=== PATIENT | male | born 2000 | race Caucasian/White ===

== ENCOUNTER 2021-07-09 08:12 | Outpatient (CLI) | payer OTHER ==
[~2021-07-09] VITALS: Ht 188 cm; Wt 119.1 kg
[2021-07-09 08:45] VITALS: BP 129/100; PULSE 80; TEMP 97.9
[2021-07-09 08:46] LABS: HEMATOCRIT 49.5 % (42.0-52.0); HEMOGLOBIN 17.3 g/dl (13.5-18.0); MEAN CELL VOLUME 88 fl (80.0-100.0); MEAN CORPUSCULAR HEMOGLOBIN 31 pg (27.0-31.0); MEAN CORPUSCULAR HGB CONC 35 g/dl (33.0-37.0); MEAN PLATELET VOLUME 9.5 fl (7.4-10.4); PLATELET COUNT 295 K/mm3 (130-400); RED BLOOD COUNT 5.64 M/mm3 (4.20-5.60); REDCELL DISTRIBUTION WIDTH-CV 11.9 % (11.5-14.5)
[2021-07-09 08:58] LABS: CALCIUM 9.4 mg/dL (8.4-10.2); CREATININE, serum 0.98 (0.66-1.25); POTASSIUM 4.3 mmol/L (3.4-5.0)
[2021-07-09 09:11] LABS: PROTHROMBIN TIME 11.2 SECONDS (9.7-12.8)
[2021-07-09 09:27] VITALS: BP 102/70; PULSE 82; TEMP 97.9
--- NOTE | 2021-07-09 09:27 | NUR ---
Report from Erin ESPAÑA. S
[2021-07-09 09:42] VITALS: BP 121/82; PULSE 76; TEMP 97.9
[2021-07-09 09:57] VITALS: BP 122/85; PULSE 79; TEMP 97.9
[2021-07-09 10:12] VITALS: BP 101/72; PULSE 88; TEMP 97.9
[2021-07-09 10:30] VITALS: BP 102/70; PULSE 79; TEMP 97.9
--- NOTE | 2021-07-09 10:30 | NUR ---
INT discontinued intact. Discharge instructions given and Dr. Huber in to talk to pt. Transferred to private car by
== END 2021-07-09 10:41 | disposition home or self-care (01) ==
LOC: COL.RAD 08:12
PROVIDERS: Internal Medicine Cardiovascular Disease
DX: J45.909 Unspecified asthma, uncomplicated (principal)
CPT/HCPCS: J2704; J7120